=== PATIENT | female | born 1980 | race Caucasian/White ===

== ENCOUNTER 2025-02-08 10:50 | Emergency (ER) | payer OTHER, MEDICAID ==
[~2025-02-08] VITALS: Ht 165.1 cm; Wt 59.4 kg
--- NOTE | 2025-02-08 12:07 | Physician Documentation ---
History of Present Illness ~ Chief Complaint: Mental Health Eval Stated Complaint: MENTAL HEALTH Time Seen by MD: 11:51 OK to notify your PCP?: Yes Source: patient, family Mode of Arrival: POV Exam Limitations: no limitations HPI This is a 44-year-old female who comes in complaining of thoughts of the harming herself and others. She is with a family member who gives most of the history. Evidently the patient has been very agitated and has a plate in his had difficulty sleeping. She has a history of PTSD but no other psychiatric diagnosis. The patient does admit to SI and HI though she does not give a specific plan. 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, memory intact Motor / Sensory: no motor deficit Appearance/Memory/Insight: appropriate appearance, appropriate insight, neat Behavior/Eye contact/Speech: threatening eye contact Thought/Hallucinations: no apparent hallucination Affect: angry Skin: normal color Progress Results/Orders Results/Orders Orders - CRISTA MARTINEZ Cbc/Diff (02/08/25 12:00) Urinalysis (02/08/25 12:00) Hcg, Ur Ql (02/08/25 12:00) Drug Screen, Urine (02/08/25 12:00) Ethanol (02/08/25 12:00) TSH (02/08/25 12:00) Mh Med Rec (02/08/25 12:00) 1799.11 (02/08/25 12:00) BMP (02/08/25 12:00) Close Observation Level (02/08/25 12:00) Covid19 Binax Poc Result Entry (02/08/25 12:00) Regular Diet (02/08/25 Dinner) Vital Signs 02/08/25 10:54 Temp 98.4 Pulse 111 Resp 24 B/P (MAP) 177/103 Pulse Ox 99 Medical Decision Making Additional information obtaine: N/A Findings With the inpatient makes very threatening becomes active during the exam. She does admit to SI and HI. The place the patient on a 1799 hold and she has been medically cleared for mental health evaluation Differential Dx:Considerations: Include: Alcohol abuse, Anxiety, Bipolar disorder, Conversion disorder, Depression, Encephaloathy, Homicidal, Panic d isorder, Personality disorder, Schizophrenia, Substance abuse, Suicidal, Other Differential Diagnosis Acute agitation. Suicide ideation. Homicidal ideation. Departure Disposition: 65 [facility] Impression: Primary Impression: Suicidal ideation Additional Impressions: Homicidal ideation Agitation Condition: Guarded Additional Instructions: The patient has been medically evaluated and cleared for mental health evaluation Referrals: NO PRIMARY CARE PROVIDER (PCP) Signature Scribe Signature: No scribe Attestation: The note accurately reflects work and decisions made by me.Crista CONTRERAS 02/08/25 12:07 CRISTA MARTINEZ Feb 08, 2025 12:07
[2025-02-08 12:20] LABS: LEUKOCYTE ESTERASE ,URINE NEGATIVE (Neg); NITRITES, URINE POSITIVE (Neg); OCCULT BLOOD,URINE MODERATE (Neg)
[2025-02-08 12:21] LABS: URINE HCG NEGATIVE (NEG)
[2025-02-08 12:24] LABS: UA COLLECTION TYPE NON-SPECIFIED
[2025-02-08 12:25] LABS: MUCUS STRANDS FEW /LPF (Neg); SQUAMOUS EPITHELIAL CELL,UR FEW /LPF (FEW)
[2025-02-08 12:29] LABS: URINE AMPHETAMINE SCREEN NEGATIVE (Neg); URINE BARBITUATE SCREEN NEGATIVE (Neg); URINE BENZODIAZEPINES SCREEN NEGATIVE (Neg); URINE CANNABINOID SCREEN POSITIVE (Neg); URINE COCAINE SCREEN NEGATIVE (Neg); URINE METHADONE SCREEN NEGATIVE (Neg); URINE OPIATE SCREEN NEGATIVE (Neg); URINE PHENCYCLIDINE SCREEN NEGATIVE (Neg)
[2025-02-08 13:12] LABS: MEAN PLATELET VOLUME 9.7 FL (7.4-10.4); RED CELL DISTRIBUTION WIDTH 13.1 % (11.5-14.5)
[2025-02-08 13:19] LABS: CREATININE 0.83 MG/DL (0.40-0.90); TOTAL CARBON DIOXIDE 25.8 MMOL/L (24-32); eCRCL 78 ML/MIN; eGFR 75 ML/MIN
[2025-02-08 13:39] LABS: ETHANOL < 10 MG/DL (<10)
[2025-02-09 06:10] VITALS: BP 126/74; PULSE 74; TEMP 98.1; O2SAT 99
[2025-02-09 10:11] VITALS: RESP 14
[2025-02-09] MEDS ORDERED: UNABLE TO OBTAIN (10:44)
== END 2025-02-09 17:48 ==
LOC: ER 10:52
DX: R45.851 Suicidal ideations (principal); R45.850 Homicidal ideations; R45.1 Restlessness and agitation; Z88.0 Allergy status to penicillin; Z79.899 Other long term (current) drug therapy; Z20.822 Contact with and (suspected) exposure to COVID-19
CPT/HCPCS: 36415; 80048; 80305; 80320; 81001; 81025; 84443; 85025; 87811; 99285; Q0163; A4615